=== PATIENT | male | born 1960 | race Caucasian/White ===

== ENCOUNTER → 2022-02-22 | Outpatient (CLI) | payer OTHER ==
[~2022-02-22] VITALS: Ht 175.3 cm; Wt 87.5 kg
[~2022-02-22] MED LIST: FLOMAX 0.40.4 MG/CAP PO; NORCO 325 MG-7.1 TAB PO; PRINIVIL10 MG PO; TENORMIN 5050 MG/TAB PO
[2022-02-22 14:32] VITALS: BP 157/88; PULSE 56; TEMP 98.2
[2022-02-22 15:57] VITALS: BP 140/86; PULSE 56
== END ==
LOC: COL.RAD 09:00
DX: M17.11 Unilateral primary osteoarthritis, right knee (principal)
CPT/HCPCS: J2250; J2704

== ENCOUNTER → 2024-03-08 | Outpatient (CLI) | payer OTHER ==
[~2024-03-08] VITALS: Ht 175.3 cm; Wt 85.7 kg
[~2024-03-08] MED LIST changes: +ASPIRIN E.C. 8181 MG PO; +LAMICTAL XR200 MG PO; +LR 1,000 ML IV SCH; +Lidocaine PF 2% (20 MG/ML) 5 ML VIAL ONE; +Midazolam 2 MG/2 ML VIAL ONE; +PRINIVIL40 MG PO; +ZOCOR 40MG40 MG PO
[2024-03-08 09:56] VITALS: BP 137/90; PULSE 71; TEMP 97.5
[2024-03-08 11:28] VITALS: BP 110/65; PULSE 74
[2024-03-08 11:30] VITALS: BP 122/74; PULSE 75
--- NOTE | 2024-03-08 12:59 | NUR ---
1150--PATIENT IS AWAKE, ALERT, AND ORIENTED. PATIENT HAS COMPLETED HIS RECOPVERY PRIOD WITHOUT ANY ISSUES. PATIENT HAS HAD WATER TO DRINK AND HAS BEEN RESTING IN THE RECLINER AND USING HIS PHONE. PATIENT HAS D/C INSTRUCTIONS AND IS ABLE TO TEACH BACK. IV REMOVED WITHOUT ANY ISSUES. PATIENT GOT DRESSED BY HIMSELF. ESCORTED PATIENT OUT TO PATIENT ENTRANCE VIA WHEELCHAIR WITH ALL OF HIS BELONGINGS. HIS PULLED UP THEIR VEHICLE AND PATIENT WAS ABLE TO GET INTO FRONT PASSENGER SEAT WITHOUT ANY ISSUES OR ASSISTANCE. ALL NEEDS MET.
== END ==
LOC: COL.RAD 08:52
DX: M50.122 Cervical disc disorder at C5-C6 level with radiculopathy (principal); M50.123 Cervical disc disorder at C6-C7 level with radiculopathy; M50.13 Cervical disc disorder with radiculopathy, cervicothoracic region; M47.23 Other spondylosis with radiculopathy, cervicothoracic region; M89.38 Hypertrophy of bone, other site; M48.02 Spinal stenosis, cervical region; M48.03 Spinal stenosis, cervicothoracic region
CPT/HCPCS: J2250; J2704; J7120